=== PATIENT | male | born 1985 | race Caucasian/White ===

== ENCOUNTER 2024-05-13 20:19 | Inpatient (IN) | payer OTHER ==
[~2024-05-13] VITALS: Ht 177.8 cm; Wt 117.9 kg
[2024-05-13 20:42] VITALS: BP 111/83; PULSE 76; RESP 18; TEMP 97.8; O2SAT 98
[2024-05-13 21:52] LABS: BASOPHILS # (AUTO) 0.1 K/uL (0.00-0.22); EOSINOPHILS # (AUTO) 0.1 K/uL (0-0.4); EOSINOPHILS % (AUTO) 1.6 % (0.0-4.0); HEMOGLOBIN 8.7 g/dL (12.0-18.0); LYMPHOCYTES # (AUTO) 1.2 K/uL (2.0-11.5); LYMPHOCYTES % (AUTO) 30.3 % (20.5-51.1); MEAN CORPUSCULAR HEMOGLOBIN 26 pg (27-31); MEAN CORPUSCULAR HGB CONC 31 g/dL (33-37); MEAN CORPUSCULAR VOLUME 82.7 fL (80-94); MONOCYTES # (AUTO) 0.8 K/uL (0.8-1.0); MONOCYTES % (AUTO) 21.8 % (1.7-9.3); NEUTROPHILS # (AUTO) 1.7 K/uL (1.8-7.7); NEUTROPHILS % (AUTO) 44.3 % (42.2-75.2); PLATELET COUNT (AUTO) 171 K/uL (140-450); RED BLOOD CELL COUNT(AUTO) 3.39 MIL/uL (4.20-6.10); RED CELL DISTRIBUTION WIDTH 24.6 % (11.6-13.7); WHITE BLOOD COUNT (AUTO) 3.8 K/uL (4.8-10.8)
[2024-05-13 22:10] LABS: CALCIUM 7.6 mg/dL (8.5-10.1); CARBON DIOXIDE 24.9 mmol/L (21-32); CREATININE 0.8 mg/dL (0.6-1.3); POTASSIUM 3.9 mmol/L (3.5-5.1)
[2024-05-13 22:13] LABS: INR 1.03 (0.8-1.2); PARTIAL THROMBOPLASTIN TIME 25.9 secs (22-35.6); PROTHROMBIN TIME 10.8 secs (10.8-13.4)
[2024-05-13 22:17] LABS: ALANINE AMINOTRANSFERASE 28 U/L (12-78); ALBUMIN 2.4 g/dL (3.4-5.0); ALCOHOL, BLOOD 283 mg/dL (<10); ALKALINE PHOSPHATASE 92 U/L (50-136); ASPARTATE AMINOTRANSFERASE 36 U/L (15-37); BILIRUBIN,DIRECT 0.1 mg/dL (0.0-0.3); LIPASE 25 U/L (16-77); TOTAL BILIRUBIN 0.3 mg/dL (0.0-1.0); TOTAL PROTEIN, SERUM 5.4 g/dL (6.4-8.2)
[2024-05-13 22:27] VITALS: O2SAT 94
[2024-05-13] MEDS: PANTOPRAZOLE 40 MG INJ VIAL IVP ONE (22:49)
[2024-05-13] MEDS: MORPHINE SULFATE 4 MG/ML SYR IVP ONE (23:07)
[2024-05-13] MEDS: ONDANSETRON 4 MG/2 ML VIAL IVP ONE (23:08)
[2024-05-13] MEDS ORDERED: HYDROcodone/APAP 5/325 MG 1 TAB TAB PO PRN (23:45)
[2024-05-13] MEDS ORDERED: LORazepam 2 MG/ML VIAL IVP PRN (23:45)
[2024-05-13] MEDS ORDERED: ALBUTEROL 0.083% 2.5 MG/3 ML NEBU INH PRN (23:45)
[2024-05-14] MEDS: DEXT 5% /NACL 0.9% 1,000 ML IV SCH (00:33)
[2024-05-14] MEDS ORDERED: [UNRECOGNIZED DRUG - CODE] PO (00:49)
[2024-05-14] MEDS ORDERED: FERR75LI22 PO (00:49)
[2024-05-14] MEDS ORDERED: APIX5TAB PO (00:49)
[2024-05-14] MEDS ORDERED: PANT40EC PO (00:49)
[2024-05-14 00:51] VITALS: O2SAT 94
[2024-05-14 01:44] VITALS: PULSE 74; RESP 18; O2SAT 100
[2024-05-14 04:00] VITALS: BP 128/75; PULSE 64; RESP 18; TEMP 97.3; O2SAT 99
[2024-05-14 06:38] LABS: HEMATOCRIT 26.6 % (36-52); HEMOGLOBIN 8.3 g/dL (12.0-18.0); MEAN CORPUSCULAR HEMOGLOBIN 26 pg (27-31); MEAN CORPUSCULAR HGB CONC 31 g/dL (33-37); MEAN CORPUSCULAR VOLUME 82.5 fL (80-94); PLATELET COUNT (AUTO) 159 K/uL (140-450); RED BLOOD CELL COUNT(AUTO) 3.22 MIL/uL (4.20-6.10); RED CELL DISTRIBUTION WIDTH 24.5 % (11.6-13.7); WHITE BLOOD COUNT (AUTO) 2.8 K/uL (4.8-10.8)
[2024-05-14 07:11] LABS: ANION GAP 12.9 (8-16); CALCIUM 7.5 mg/dL (8.5-10.1); CARBON DIOXIDE 25.8 mmol/L (21-32); CREATININE 0.8 mg/dL (0.6-1.3); POTASSIUM 3.7 mmol/L (3.5-5.1)
[2024-05-14 08:00] VITALS: BP 128/75; PULSE 52; PULSE 77; RESP 18; TEMP 97.7; O2SAT 95; O2SAT 99
[2024-05-14 08:18] LABS: EOSINOPHILS % (MANUAL) 3 % (0-4); LYMPHOCYTES % (MANUAL) 36 % (20-46); MONOCYTES % (MANUAL) 21 % (5-12)
[2024-05-14 08:19] LABS: BASOPHILS % (MANUAL) 0 % (0-2); BLASTS, MANUAL % 0 % (0-0); METAMYELOCYTES % 0 % (0-0); MYELOCYTES % 0 % (0-0); OTHER CELLS,MANUAL % 0 (0-0); PLASMA CELLS 0; PROMYELOCYTES % 0 % (0-0); SMUDGE CELLS 0
[2024-05-14 08:20] LABS: ANISOCYTOSIS 3+; PLATELET ESTIMATE ADEQUATE; POIKILOCYTOSIS 2+
[2024-05-14 08:21] LABS: OVALOCYTES 1+; TARGET CELLS 1+; TEAR DROP CELLS 1+
[2024-05-14] MEDS: PANTOPRAZOLE 40 MG INJ VIAL IVP SCH (09:40)
[2024-05-14] MEDS: MORPHINE SULFATE 2 MG/ML SYR IVP PRN (11:08)
[2024-05-14] MEDS: CLONIDINE HYDROCHLORIDE 0.1 MG TAB PO SCH ×2 (11:25→21:32)
[2024-05-14] MEDS: MIDAZOLAM 5 MG/5 ML VIAL ONE (11:32)
[2024-05-14] MEDS: fentaNYL citrate 0.05 MG/ML VIAL ONE (11:32)
[2024-05-14] MEDS: diphenhydrAMINE 50 MG/ML VIAL ONE (11:32)
[2024-05-14] MEDS: MIDAZOLAM 2 MG/2 ML VIAL IVP ONE (12:06)
[2024-05-14] MEDS: fentaNYL citrate 0.05 MG/ML VIAL IVP ONE (12:07)
[2024-05-14] MEDS: IPRATROPIUM 0.02% 0.5 MG/2.5 ML NEBU INH SCH (13:00)
[2024-05-14] MEDS: chlordiazePOXIDE 25 MG CAP PO SCH (13:56)
[2024-05-14] MEDS: SODIUM FERRIC GLUCONATE 125 MG in NACL 0.9% 100 ML IV SCH (13:57)
[2024-05-14] MEDS: ONDANSETRON 4 MG/2 ML VIAL IVP PRN (18:44)
[2024-05-14 20:00] VITALS: BP 115/83; PULSE 72; PULSE 98; RESP 17; RESP 18; TEMP 98.8; O2SAT 95; O2SAT 97
[2024-05-14] MEDS: ACETAMINOPHEN 325 MG TAB PO PRN (21:32)
[2024-05-14] MEDS: ZOLPIDEM 5 MG TAB PO ONE (22:29)
[2024-05-15 04:00] VITALS: BP 133/88; PULSE 56; RESP 16; TEMP 97.2; O2SAT 100
[2024-05-15 04:04] VITALS: PULSE 85; RESP 20; O2SAT 99
[2024-05-15 06:16] LABS: BASOPHILS % (AUTO) 1.6 % (0.0-2.0); EOSINOPHILS # (AUTO) 0.1 K/uL (0-0.4); EOSINOPHILS % (AUTO) 3.7 % (0.0-4.0); HEMATOCRIT 26.6 % (36-52); HEMOGLOBIN 8.3 g/dL (12.0-18.0); LYMPHOCYTES # (AUTO) 0.9 K/uL (2.0-11.5); LYMPHOCYTES % (AUTO) 31.2 % (20.5-51.1); MEAN CORPUSCULAR HEMOGLOBIN 26 pg (27-31); MEAN CORPUSCULAR HGB CONC 31 g/dL (33-37); MEAN CORPUSCULAR VOLUME 83.5 fL (80-94); MONOCYTES # (AUTO) 0.7 K/uL (0.8-1.0); MONOCYTES % (AUTO) 23.3 % (1.7-9.3); NEUTROPHILS # (AUTO) 1.2 K/uL (1.8-7.7); NEUTROPHILS % (AUTO) 40.2 % (42.2-75.2); PLATELET COUNT (AUTO) 145 K/uL (140-450); RED BLOOD CELL COUNT(AUTO) 3.19 MIL/uL (4.20-6.10); RED CELL DISTRIBUTION WIDTH 24.3 % (11.6-13.7)
[2024-05-15 06:25] LABS: ANION GAP 7.7 (8-16); CALCIUM 7.6 mg/dL (8.5-10.1); CARBON DIOXIDE 28.7 mmol/L (21-32); CREATININE 0.7 mg/dL (0.6-1.3); POTASSIUM 3.4 mmol/L (3.5-5.1)
[2024-05-15 06:38] LABS: MAGNESIUM 1.6 mg/dL (1.8-2.4); PHOSPHORUS 3.8 mg/dL (2.5-4.9)
[2024-05-15 08:00] VITALS: BP 119/72; PULSE 68; RESP 17; RESP 18; TEMP 97.3; O2SAT 96
[2024-05-15] MEDS ORDERED: FERR325E14 PO (11:59)
[2024-05-15] MEDS ORDERED: DOCU-299 PO ×2 (12:00→15:40)
[2024-05-15] MEDS: POTASSIUM CHLORIDE 10 MEQ TABER PO SCH (12:56)
[2024-05-15] MEDS: MAGNESIUM OXIDE 400 MG TAB PO SCH (12:57)
[2024-05-15 14:19] VITALS: BP 119/72; PULSE 68; RESP 17; TEMP 97.3
== END 2024-05-15 15:04 | disposition home or self-care (01) | DRG 917 ==
LOC: MED 20:19 → EDBD 20:19 → MTU 23:42 → MMU 05-14 00:45
PROVIDERS: ADMIT Student in an Organized Health Care Education/Training Program; ATTEND Student in an Organized Health Care Education/Training Program
PROC: 0DJ08ZZ Inspection of Upper Intestinal Tract, Via Natural or Artificial Opening Endoscopic (ICD-10-PCS; principal; 2024-05-14 12:00)
DX: T51.91XA Toxic effect of unspecified alcohol, accidental (unintentional), initial encounter (principal); E43 Unspecified severe protein-calorie malnutrition; K92.0 Hematemesis; R10.9 Unspecified abdominal pain; D64.9 Anemia, unspecified; I10 Essential (primary) hypertension; Z98.84 Bariatric surgery status; Z89.512 Acquired absence of left leg below knee; Z86.711 Personal history of pulmonary embolism; Z79.01 Long term (current) use of anticoagulants; Z87.11 Personal history of peptic ulcer disease; Z68.37 Body mass index [BMI] 37.0-37.9, adult; Y90.8 Blood alcohol level of 240 mg/100 ml or more
CPT/HCPCS: 36415; 71045; 80048; 80076; 83690; 83735; 83880; 84100; 84484; 85025; 85610; 85730; 86886; 86900; 86901; 87081; 93005; 96374; 96375; 99285; G0482; J1200; J2250; J2270; J2405; J2470; J2916; J3010; Q0092; Q0163

== ENCOUNTER 2024-07-03 21:35 | Emergency (ER) | payer OTHER ==
[~2024-07-03] VITALS: Ht 185.4 cm; Wt 106.6 kg
[~2024-07-03 21:35] MED LIST: APIX5TAB PO; DOCU-299 PO; FERR325E14 PO; FERR75LI22 PO; PANT40EC PO; [UNRECOGNIZED DRUG - CODE] PO
[2024-07-03 21:37] VITALS: BP 122/66; PULSE 74; RESP 20; TEMP 98; O2SAT 97
[2024-07-03] MEDS ORDERED: DICYCLOMINE HCL LIQUID 10 MG/5 ML UDC ONE (23:03)
[2024-07-03] MEDS ORDERED: ALUMINUM HYD/MAG/SIMETHICONE 30 ML UDC ONE ×2 (23:03→23:04)
[2024-07-03 23:06] LABS: BASOPHILS # (AUTO) 0.1 K/uL (0.00-0.22); BASOPHILS % (AUTO) 1.9 % (0.0-2.0); EOSINOPHILS % (AUTO) 1.1 % (0.0-4.0); HEMATOCRIT 33.5 % (36-52); HEMOGLOBIN 10.4 g/dL (12.0-18.0); LYMPHOCYTES # (AUTO) 1.8 K/uL (2.0-11.5); LYMPHOCYTES % (AUTO) 39.5 % (20.5-51.1); MEAN CORPUSCULAR HEMOGLOBIN 27 pg (27-31); MEAN CORPUSCULAR HGB CONC 31 g/dL (33-37); MEAN CORPUSCULAR VOLUME 87.9 fL (80-94); MONOCYTES # (AUTO) 0.3 K/uL (0.8-1.0); MONOCYTES % (AUTO) 6.3 % (1.7-9.3); NEUTROPHILS # (AUTO) 2.4 K/uL (1.8-7.7); NEUTROPHILS % (AUTO) 51.2 % (42.2-75.2); PLATELET COUNT (AUTO) 184 K/uL (140-450); RED BLOOD CELL COUNT(AUTO) 3.81 MIL/uL (4.20-6.10); RED CELL DISTRIBUTION WIDTH 19.4 % (11.6-13.7); WHITE BLOOD COUNT (AUTO) 4.6 K/uL (4.8-10.8)
[2024-07-03] MEDS: ONDANSETRON 4 MG ODT PO ONE (23:16)
[2024-07-03] MEDS: DICYCLOMINE HCL LIQUID 20 MG, ALUMINUM HYD/MAG/SIMETHICONE 30 ML, LIDOCAINE VISCOUS 2% ... PO ONE (23:17)
[2024-07-03 23:28] LABS: ANION GAP 12.6 (8-16); CARBON DIOXIDE 29.4 mmol/L (21-32); CREATININE 0.7 mg/dL (0.6-1.3)
[2024-07-03 23:35] LABS: BILIRUBIN,DIRECT 0.2 mg/dL (0.0-0.3); TOTAL BILIRUBIN 0.5 mg/dL (0.0-1.0)
[2024-07-03 23:36] LABS: TOTAL PROTEIN, SERUM 6.6 g/dL (6.4-8.2)
[2024-07-04 00:02] VITALS: O2SAT 99
[2024-07-04 00:28] LABS: APPEARANCE,URINE CLEAR (CLEAR); BILIRUBIN,URINE NEGATIVE (NEGATIVE); BLOOD, URINE NEGATIVE (NEGATIVE); COLOR,URINE YELLOW (YELLOW); LEUKOCYTE ESTERASE ,URINE NEGATIVE (NEGATIVE); NITRITE, URINE NEGATIVE (NEGATIVE); PROTEIN,URINE NEGATIVE (NEGATIVE); UGLUCOSE NEGATIVE (NEGATIVE); UROBILINOGEN,URINE 0.2 EU/dL (0.2 - 1)
[2024-07-04 00:40] LABS: AMPHETAMINE, URINE NEGATIVE ng/ml (NEG <=1000); BARBITURATE, URINE NEGATIVE ng/ml (NEG <=200); BENZODIAZEPINE, URINE NEGATIVE ng/mL (NEG <=200); CANNABINOID, URINE NEGATIVE ng/mL (NEG <=50); COCAINE, URINE NEGATIVE ng/mL (NEG <=300); OPIATE, URINE NEGATIVE ng/mL (NEG <=2000); PHENCYCLIDINE SCREEN,URINE NEGATIVE ng/mL (NEG <=25)
[2024-07-04 02:53] VITALS: BP 112/71
[2024-07-04 05:27] VITALS: PULSE 16; RESP 14; TEMP 98.1; O2SAT 99
== END 2024-07-04 05:27 | disposition home or self-care (01) ==
LOC: MED 21:35
DX: R10.84 Generalized abdominal pain (principal); R11.0 Nausea; F10.10 Alcohol abuse, uncomplicated; I10 Essential (primary) hypertension; Z79.899 Other long term (current) drug therapy; Z79.01 Long term (current) use of anticoagulants; Y90.8 Blood alcohol level of 240 mg/100 ml or more
CPT/HCPCS: 36415; 74176; 80048; 80076; 80305; 81003; 83690; 85025; 99284; G0482; Q0162

== ENCOUNTER 2024-07-16 16:36 | Emergency (ER) | payer OTHER ==
[~2024-07-16] VITALS: Ht 175.3 cm; Wt 122.5 kg
[2024-07-16 16:46] VITALS: BP 132/79; PULSE 76; RESP 18; TEMP 98.3; O2SAT 95
[2024-07-16 17:00] VITALS: O2SAT 95
[2024-07-16] MEDS: HYDROcodone/APAP 5/325 MG 1 TAB TAB PO ONE (19:19)
[2024-07-16] MEDS ORDERED: ACET-8905 PO (19:35)
[2024-07-16 19:38] VITALS: BP 121/80; PULSE 81; RESP 18; TEMP 98; O2SAT 98
== END 2024-07-16 19:38 | disposition home or self-care (01) ==
LOC: MED 16:36
DX: S93.401A Sprain of unspecified ligament of right ankle, initial encounter (principal); S39.012A Strain of muscle, fascia and tendon of lower back, initial encounter; I10 Essential (primary) hypertension; Z79.899 Other long term (current) drug therapy; Z79.01 Long term (current) use of anticoagulants; W01.0XXA Fall on same level from slipping, tripping and stumbling without subsequent striking against object, initial encounter; Y92.89 Other specified places as the place of occurrence of the external cause; Y93.89 Activity, other specified; Y99.8 Other external cause status
CPT/HCPCS: 72100; 73610; 99284

== ENCOUNTER 2024-07-17 18:11 | Emergency (ER) | payer OTHER ==
[~2024-07-17] VITALS: Ht 172.7 cm; Wt 90.7 kg
[~2024-07-17 18:11] MED LIST changes: +ACET-8905 PO
[2024-07-17 18:14] VITALS: BP 113/74; PULSE 96; RESP 16; TEMP 98; O2SAT 94
== END 2024-07-17 19:51 | disposition left against medical advice (07) ==
LOC: MED 18:11
DX: M79.604 Pain in right leg (principal); Z53.21 Procedure and treatment not carried out due to patient leaving prior to being seen by health care provider
CPT/HCPCS: 73590; 73610; 73630

== ENCOUNTER 2024-08-14 20:30 | Emergency (ER) | payer OTHER ==
[~2024-08-14] VITALS: Ht 185.4 cm; Wt 113.4 kg
[2024-08-14 20:36] VITALS: BP 113/71; PULSE 71; RESP 18; TEMP 98; O2SAT 97
[2024-08-14 22:10] VITALS: O2SAT 97
[2024-08-14] MEDS: KETOROLAC 60 MG/2 ML VIAL IM ONE (22:36)
[2024-08-14] MEDS: MORPHINE SULFATE 4 MG/ML SYR IM ONE (22:57)
== END 2024-08-14 23:18 | disposition home or self-care (01) ==
LOC: MED 20:30
DX: S00.03XA Contusion of scalp, initial encounter (principal); I10 Essential (primary) hypertension; Z98.890 Other specified postprocedural states; Z79.899 Other long term (current) drug therapy; Z79.01 Long term (current) use of anticoagulants; Y04.2XXA Assault by strike against or bumped into by another person, initial encounter; Y93.89 Activity, other specified; Y92.521 Bus station as the place of occurrence of the external cause; Y99.8 Other external cause status
CPT/HCPCS: 96372; 99283; J2270